=== PATIENT | male | born 1965 | race Caucasian/White ===

== ENCOUNTER 2020-11-22 13:05 | Observation (INO) | payer SELFPAY ==
[~2020-11-22] VITALS: Ht 185.4 cm; Wt 90.9 kg
--- NOTE | 2020-11-22 13:05 | NUR ---
TO ROOM VIA EMS AT BEDSIDE
[2020-11-22 13:21] VITALS: BP 151/112
[2020-11-22 13:33] LABS: HEMATOCRIT 45.4 % (39.0-50.0); HEMOGLOBIN 14.3 g/dl (14.0-18.0); IMMATURE GRANULOCYTES 0.5 % (0.0-5.0); MEAN CELL VOLUME 85.5 fL CALC (80.0-100.0); MEAN CORPUSCULAR HGB 26.9 pG CALC (26.0-32.0); MEAN CORPUSCULAR HGB CONC 31.5 g/dL CAL (32.0-36.0); NEUT# 7.67 thou/uL (1.82-7.42); RED BLOOD COUNT 5.31 mill/uL (4.70-6.10); RED CELL DISTRI WIDTH 14.1 % (11.5-15.5)
[2020-11-22 13:40] LABS: ALKALINE PHOSPHATASE 59 u/l (38-126); ANION GAP 18 (6-22 (CALC)); BILIRUBIN, TOTAL 1.2 mg/dL (0.0-1.4); BUN 21 mg/dL (9-20); BUN/CREATININE RATIO 29 (12-20 (CALC)); CARBON DIOXIDE 22 mmol/l (22-30); CHLORIDE 103 mmol/l (95-108); CREATININE 0.7 mg/dL (0.7-1.3); ETHYL ALCOHOL 0 mg/dl (0-30); GFR > 60 ML/MIN (>=60 (CALC)); GFR FOR AFR.AMER. > 60 ML/MIN (>=60 (CALC)); SGOT/AST 26 u/l (17-59); SODIUM 139 mmol/l (137-146); TOTAL PROTEIN 8.8 g/dL (6.3-8.2)
[2020-11-22 13:42] LABS: URINE BILIRUBIN - DIPSTICK NEGATIVE (NEGATIVE); URINE BLOOD DIPSTICK SMALL (NEGATIVE); URINE COLOR YELLOW; URINE GLUCOSE - DIPSTICK NEGATIVE (NEGATIVE); URINE KETONE 15 mg/dL (NEGATIVE); URINE LEUK ESTERASE NEGATIVE (NEGATIVE); URINE PROTEIN - DIPSTICK 100 mg/dL (NEG-TRACE); URINE SPECIFIC GRAVITY >=1.030; URINE UROBILINOGEN - DIPSTICK 0.2 E.U./dL (0.2)
[2020-11-22 13:44] LABS: URINE EPITHELIAL CELLS MODERATE EPI/hpf (0-FEW); URINE MUCUS MODERATE hpf (NONE-FEW); URINE NITRITE - DIPSTICK NEGATIVE (Negative)
[2020-11-22 13:52] LABS: MYOGLOBIN 86 ng/mL (0 - 121)
--- NOTE | 2020-11-22 14:00 | NUR ---
[employer]ION [employer] CALLED. POSION [employer] SUGGESTING BICAR CHALLENGE FOR PROLONGED QTC.
--- NOTE | 2020-11-22 14:15 | NUR ---
Reassessment of patient completed. No distress noted.
--- NOTE | 2020-11-22 15:16 | NUR ---
Reassessment of patient completed. No distress noted.
--- NOTE | 2020-11-22 16:15 | NUR ---
PT ADMITED TO ICU. PT BOARDING IN ER. PT STILL NOT RESPONSIVE AT THIS TIME.
--- NOTE | 2020-11-22 17:03 | NUR ---
SPOKE TO [employer]. AFTER GIVEN SODIUM BICARB THEY DON'T SUGGEST TO CONTINUE WITH THE SODIUM BICARB DRIP. THEY DO SUGGEST DOING A MG LEVEL AND TREATING IF LOW.
--- NOTE | 2020-11-22 17:15 | NUR ---
PT AWAKE NOW. PT SCREAMING AT STAFF. POLICE WERE CALLED DUE TO BEHAVIOR.
--- NOTE | 2020-11-22 17:20 | NUR ---
PT AWAKE AND ALERT AND ORIENTED X3. PT MAKING VERBAL THREATS TO STAFF. AWARE. [facility] PHONED FOR ASSSISTANCE. GLUING MACHINE OPERATOR NOTIFIED.
--- NOTE | 2020-11-22 18:00 | NUR ---
PT UNWILLING TO STAY. PT ASKING TO GO AMA. PT HAD IV AND PARR REMOVED. PT INSTRUCTED TO RETURN IF NEEDED. PT ESCORTED OUT OF THE ER. PT UNWILLING TO SIGN AMA FORM.
--- NOTE | 2020-11-22 18:00 | NUR ---
Patient decides to leave AMA. Multiple attempts made to ecourage patient to remain here for continued treatment. Explained to patient all risks of leaving against medical advice including . Pt verbalized understanding of all risks. Pt also encouraged to return to [facility] at any time, especially if symptoms continue or become worse. Pt verbalized understanding.
--- NOTE | 2020-11-22 18:27 | NUR ---
PT AWOKE AND BECAME AGGRESIVE WITH STAFF. PT REQUESTING TO GO AMA. PT UNWILLING TO STAY OR SIGN PAPERS. CALLED AND MADE AWARE.
--- NOTE | 2020-11-22 18:30 | NUR ---
PREVIOUS NOTE HAPPENED AT 1800. UNABLE TO AMMEND NOTE.
== END 2020-11-22 18:00 | disposition left against medical advice (07) | DRG 948 ==
LOC: ED 13:05 → ED-I 14:50 → ED 15:13 → ED-I 15:14
PROVIDERS: Emergency Medicine; ADMIT Internal Medicine; ATTEND Internal Medicine
DX: R41.82 Altered mental status, unspecified (principal); Z20.822 Contact with and (suspected) exposure to COVID-19